=== PATIENT | male | born 1970 | race Caucasian/White ===

== ENCOUNTER → 2018-05-03 08:45 | Outpatient (CLI) | payer OTHER, SELFPAY ==
[2018-05-03 09:09] LABS: Add Manual Diff / Slide Review NO; Basophils Percent Auto 0.7 % (0-2); Eosinophils Percent Auto 3.4 % (2-4); Hematocrit 39.7 % (41-53); Hemoglobin 13.4 g/dL (13.5-17.5); Lymphocytes Percent Auto 20.9 % (25-40); Mean Corpuscular HGB Conc 33.8 % (30-36); Mean Corpuscular Hemoglobin 31.2 PG (26-34); Mean Corpuscular Volume 92.2 fL (80-100); Monocytes Percent Auto 7.1 % (3-14); Neutrophils Absolute Auto 6600 /uL (3000-5900); Neutrophils Percent Auto 67.9 % (50-75); Platelet Count 262 X10^3/uL (150-400); Red Blood Cell Count 4.31 X10^6/uL (4.5-5.9); Red Cell Distribution Width 12.9 % (11.6-14.8); White Blood Cell Count 9.6 X10^3/uL (4.5-11.0)
[2018-05-03 10:09] LABS: Alanine Aminotransferase 47 IU/L (21-72); Albumin 4.8 g/dL (3.5-5.0); Albumin Globulin Ratio 1.5 (1.0-2.8); Alkaline Phosphatase 66 U/L (38-126); Aspartate Aminotransferase 33 IU/L (17-59); Bilirubin Total 0.6 mg/dL (0.2-1.3); Blood Urea Nitrogen 29 mg/dL (9-20); Calcium 10.2 mg/dL (8.4-10.2); Carbon Dioxide 27 mmol/L (22-32); Chloride 101 mmol/L (98-107); Cholesterol 180 mg/dL (140-199); Estimated Glomerular Filt Rate > 60.0 mL/min (>60); Globulin 3.1 g/dL (1.7-4.1); Glucose 112 mg/dL (70-100); HDL Cholesterol 51 mg/dL (40-60); HEMOLYSIS < 15 (0-50); LDL Cholesterol Calculated 96 mg/dL (<100); Potassium 4.9 mmol/L (3.4-5.1); Sodium 139 mmol/L (137-145); Total Protein 7.9 g/dL (6.3-8.2); Triglycerides 166 mg/dL (35-150)
[2018-05-03 10:35] LABS: Prostate Specific Antigen Scrn 0.709 ng/mL (0.1-4.0)
[2018-05-03 11:01] LABS: Thyroid Stimulating Hormone 0.97 uIU/mL (0.47-4.68)
== END ==
PROVIDERS: PCP Family Medicine; Visit Provider Family Medicine
DX: I10 Essential (primary) hypertension (principal)
CPT/HCPCS: 36415; 80053; 80061; 84443; 85025; G0103

== ENCOUNTER → 2019-05-28 12:55 | Outpatient (CLI) | payer OTHER, SELFPAY ==
--- NOTE | 2019-05-28 12:59 | DI.RAD.S_ITS ---
PROCEDURE: XR KNEE LT 3V INDICATIONS: left medial knee pain TECHNIQUE: 3-views of the knee were acquired. COMPARISON: [facility], , KNEE 1-2 VIEWS RIGHT, 05/28/2017, 14:42. FINDINGS: Bones: No acute fractures or dislocations. Minimal degenerative changes of the left knee. Tiny marginal osteophyte formation of the patellofemoral compartment. No suspicious bony lesions. Soft tissues: No joint effusion. No suspicious soft tissue calcifications. IMPRESSION: Left knee without acute osseous abnormalities. Minimal degenerative change identified. Dictated by: Finesse Alvarez M.D. on 05/28/2019 at 15:28 Approved by: Finesse Alvarez M.D. on 05/28/2019 at 15:29
== END ==
PROVIDERS: Family Provider Family Medicine; PCP Family Medicine; Visit Provider Physician Assistant
DX: M25.562 Pain in left knee (principal)
CPT/HCPCS: 73562

== ENCOUNTER → 2019-10-29 09:01 | Outpatient (CLI) | payer OTHER, SELFPAY ==
--- NOTE | 2019-10-29 09:06 | DI.RAD.S_ITS ---
PROCEDURE: XR ELBOW LT MIN 3V INDICATIONS: left elbow swelling TECHNIQUE: 3 views of the elbow were acquired. COMPARISON: None. FINDINGS: Bones: No fractures or dislocations. No suspicious bony lesions. Soft tissue swelling seen at the tip of the olecranon. IMPRESSION: Soft tissue swelling seen at the tip of the olecranon potentially related to bursitis Dictated by: Foreign Cruz M.D. on 10/29/2019 at 13:24 Approved by: Foreign Cruz M.D. on 10/29/2019 at 13:25
[2019-10-29 10:16] LABS: Hematocrit 40.2 % (41-53); Hemoglobin 13.6 g/dL (13.5-17.5); Mean Corpuscular HGB Conc 33.8 % (30-36); Mean Corpuscular Hemoglobin 32.1 PG (26-34); Mean Corpuscular Volume 94.9 fL (80-100); Platelet Count 271 X10^3/uL (150-400); Red Blood Cell Count 4.23 X10^6/uL (4.5-5.9); Red Cell Distribution Width 13.4 % (11.6-14.8)
[2019-10-29 10:37] LABS: Alanine Aminotransferase 27 IU/L (<50); Albumin 4.9 g/dL (3.5-5.0); Albumin Globulin Ratio 1.5 (1.0-2.8); Alkaline Phosphatase 65 U/L (38-126); Aspartate Aminotransferase 28 IU/L (17-59); BUN Creatinine Ratio 37.8 (6-22); Blood Urea Nitrogen 34 mg/dL (9-20); Calcium 10.4 mg/dL (8.4-10.2); Carbon Dioxide 26 mmol/L (22-32); Chloride 99 mmol/L (98-107); Cholesterol 211 mg/dL (140-199); Estimated Glomerular Filt Rate > 60.0 mL/min (>60); Globulin 3.3 g/dL (1.7-4.1); Glucose 109 mg/dL (70-100); HDL Cholesterol 60 mg/dL (40-60); HEMOLYSIS < 15 (0-50); LDL Cholesterol Calculated 131 mg/dL (<100); Sodium 136 mmol/L (137-145); Total Protein 8.2 g/dL (6.3-8.2); Triglycerides 99 mg/dL (35-150); Uric Acid 6.4 mg/dL (3.5-8.5)
[2019-10-29 10:38] LABS: Potassium 5.6 mmol/L (3.4-5.1)
[2019-10-29 10:52] LABS: Microalbumi Creatinin Ratio Ur 7.6 ug/mg CR (<30); Microalbumin Urine Random < 0.6 mg/dL (0-1.6)
== END ==
PROVIDERS: Family Provider Family Medicine; PCP Family Medicine; Referring Provider Nurse Practitioner Family; Visit Provider Nurse Practitioner Family
DX: M25.422 Effusion, left elbow (principal); E78.2 Mixed hyperlipidemia; I10 Essential (primary) hypertension
CPT/HCPCS: 36415; 73080; 80053; 80061; 82043; 82570; 84550; 85027

== ENCOUNTER → 2020-09-06 07:15 | Outpatient (CLI) | payer OTHER, SELFPAY ==
[2020-09-06 09:37] LABS: Add Manual Diff / Slide Review NO; Basophils Absolute Auto 100 /uL (0-100); Basophils Percent Auto 0.9 % (0-2); Eosinophils Absolute Auto 300 /uL (0-450); Eosinophils Percent Auto 3.3 % (2-4); Hematocrit 39.7 % (41-53); Hemoglobin 13.2 g/dL (13.5-17.5); Lymphocytes Absolute Auto 2300 /uL (1100-4500); Lymphocytes Percent Auto 26.3 % (25-40); Mean Corpuscular HGB Conc 33.4 % (30-36); Mean Corpuscular Volume 95.8 fL (80-100); Monocytes Absolute Auto 700 /uL (0-900); Monocytes Percent Auto 7.5 % (3-14); Neutrophils Absolute Auto 5500 /uL (1500-7000); Platelet Count 272 X10^3/uL (150-400); Red Blood Cell Count 4.14 X10^6/uL (4.5-5.9); Red Cell Distribution Width 13.8 % (11.6-14.8); White Blood Cell Count 8.9 X10^3/uL (4.5-11.0)
[2020-09-06 09:38] LABS: Alanine Aminotransferase 38 IU/L (<50); Albumin 4.6 g/dL (3.5-5.0); Albumin Globulin Ratio 1.5 (1.0-2.8); Alkaline Phosphatase 66 U/L (38-126); Aspartate Aminotransferase 30 IU/L (17-59); Bilirubin Total 0.5 mg/dL (0.2-1.3); Blood Urea Nitrogen 24 mg/dL (9-20); Calcium 10.3 mg/dL (8.4-10.2); Carbon Dioxide 29 mmol/L (22-32); Chloride 104 mmol/L (98-107); Cholesterol 183 mg/dL (140-199); Estimated Glomerular Filt Rate > 60.0 mL/min (>60); Glucose 100 mg/dL (70-100); HDL Cholesterol 59 mg/dL (40-60); HEMOLYSIS < 15 (0-50); LDL Cholesterol Calculated 79 mg/dL (<100); Potassium 4.7 mmol/L (3.4-5.1); Sodium 140 mmol/L (137-145); Total Protein 7.6 g/dL (6.3-8.2); Triglycerides 224 mg/dL (35-150)
== END ==
PROVIDERS: Family Provider Family Medicine; PCP Family Medicine; Referring Provider Family Medicine; Visit Provider Family Medicine
DX: E78.2 Mixed hyperlipidemia (principal)
CPT/HCPCS: 36415; 80053; 80061; 85025

== ENCOUNTER → 2020-09-20 15:44 | Outpatient (CLI) | payer OTHER, SELFPAY ==
--- NOTE | 2020-09-20 15:48 | DI.ECHO.S_ITS ---
[facility]---------+ [facility] +---------+ : : [address] : [place] : : : : [id number] : : : : Phone: [phone]---------+ Echocardiogram Report + + :Name: ROSINA WREN Study Date: 09/20/2020 Height: 76 in : :[facility] Weight: 255 lb : : Gender: Male BSA: 2.5 m2 : :: 1970 Age: 50 yrs BP: 140/77 mmHg: :Reason For Study: SHORTNESS OF BREATH : :Ordering Physician: BRAYAN BLOUNTPerformed By: Sury Vanessa : :Referring: BRAYAN BLOUNT : + + Interpretation Summary 1) Normal left ventricular thickness, size, wall motion, and systolic function (EF 60-65%). 2) The right ventricle is mildly dilated. The right ventricular systolic function is normal. 3) No significant valvular abnormalities. 4) The right ventricular systolic pressure is estimated to be at least 36 mmHg based on an estimated right atrial pressure of 8 mm Hg. 5) The aortic root is mildly dilated at 4.2cm. 6) Compared to the Echo done 01/29/2017, mitral regurgitation has decreased from mild-moderate to trace on this study. Procedure: A two-dimensional transthoracic echocardiogram with color flow and Doppler was performed. The study quality was technically adequate. Comparison is made with the echocardiogram of 01/29/2017. The patient was in sinus rhythm with heart rates between 64-72 bpm during the exam. Left Ventricle: The left ventricle is normal in size and wall thickness. The ejection fraction is estimated to be 60-65%. Left ventricular systolic function appears normal without focal wall motion abnormalities. Right Ventricle: The right ventricle is mildly dilated. The right ventricular systolic function is normal. Atria: The left atrium is mildly dilated. Right atrial size is normal. There is no Doppler evidence for an interatrial shunt. Mitral Valve: The mitral valve leaflets appear mildly thickened, but open well. There is trace mitral regurgitation. Aortic Valve: The aortic valve is trileaflet. The aortic valve opens well. There is no aortic valve stenosis. No aortic regurgitation is present. Tricuspid Valve: The tricuspid valve is normal in structure and function. The right ventricular systolic pressure is estimated to be at least 36 mmHg based on an estimated right atrial pressure of 8 mm Hg. There is mild tricuspid regurgitation. Pulmonic Valve: The pulmonic valve leaflets are thin and pliable; valve motion is normal. There is mild pulmonic regurgitation. Great Vessels: The aortic root is mildly dilated. The ascending aorta is at the upper limits of normal in size. The IVC is dilated (diameter is greater than 2.1 cm) yet it collapses greater than 50% with a sniff. This suggests a right atrial pressure of 8 mm Hg. Pericardium/ Pleura There is no pericardial effusion. There is no pleural effusion. MMode/2D Measurements & Calculations LVIDd: 5.5 cm LVOT diam: 2.4 cm LVIDs: 4.1 cm Ao root diam: 4.2 cm FS: 26.0 % asc Aorta Diam: 3.6 cm EPSS: 0.73 cm Ao Arch Diam (Prox Trans): 3.3 cm IVSd: 0.85 cm LVPWd: 0.91 cm LV sims. diameter/BSA (cm/m^2): 2.3 LV sys. diameter/BSA (cm/m^2): 1.7 LA A2 area: 27.3 cm2 RA long axis: 5.5 cm LA A4 area: 26.1 cm2 RA area: 21.2 cm2 LA length (vol): 6.0 cm RA vol: 69.6 ml LA vol: 100.8 ml RA : 28.3 ml/m2 LA vol index: 41.0 ml/m2 IVC diam: 2.1 cm RVD1 (basal): 4.6 cm TAPSE: 2.5 cm Doppler Measurements & Calculations Ao V2 max: 165.8 cm/sec LVOT Max Lopez: 128.6 cm/sec Ao V2 mean: 113.8 cm/sec LV V1 max P.6 mmHg Ao max P.0 mmHg LV V1 VTI: 26.9 cm Ao mean P.9 mmHg CORINA(I,D): 3.7 cm2 Ao V2 VTI: 32.3 cm CORINA(V,D): 3.5 cm2 sev ratio: 0.83 CORINA indexed to BSA (cm^2/m^2): 1.5 MV E max lopez: 77.6 cm/sec TR max lopez: 265.2 cm/sec MV A max lopez: 87.5 cm/sec TR max P.1 mmHg MV E/A: 0.89 PA V2 max: 85.5 cm/sec Med Peak E' Lopez: 9.0 cm/sec PA V2 mean: 56.4 cm/sec E/E' med: 8.6 PA mean P.4 mmHg Lat Peak E' Lopez: 9.7 cm/sec PA pr(Accel): 35.3 mmHg E/E' lat: 8.0 E/e' average: 8.3 MV dec time: 0.25 sec SV(LVOT): 119.9 ml Reading Physician:05:36 PM
== END ==
PROVIDERS: Family Provider Family Medicine; PCP Family Medicine; Referring Provider Family Medicine; Visit Provider Family Medicine
DX: I07.1 Rheumatic tricuspid insufficiency (principal); R06.02 Shortness of breath; I37.1 Nonrheumatic pulmonary valve insufficiency; I77.810 Thoracic aortic ectasia
CPT/HCPCS: 93306

== ENCOUNTER → 2021-09-05 15:45 | Outpatient (CLI) | payer OTHER, SELFPAY ==
--- NOTE | 2021-09-05 15:47 | DI.RAD.S_ITS ---
PROCEDURE: XR CERVICAL SPINE 2V OR 3V INDICATIONS: progressive neck pain TECHNIQUE: 3 view(s) of the cervical spine were acquired. COMPARISON: None. FINDINGS: Bones: No fractures or dislocations to the C7-T1 level. Degenerative endplate changes and bilateral facet arthrosis throughout cervical spine is seen. The lateral masses of C1 appear intact on the odontoid view. No suspicious bony lesions. Soft tissues: No prevertebral soft tissue swelling. IMPRESSION: Degenerative disc disease throughout cervical spine. No acute compression fracture or spondylolisthesis. Dictated by: Jonathan Zee M.D. on 09/05/2021 at 16:07 Approved by: Jonathan Zee M.D. on 09/05/2021 at 16:10
== END ==
PROVIDERS: Family Provider Family Medicine; PCP Family Medicine; Referring Provider Family Medicine; Visit Provider Family Medicine
DX: M50.30 Other cervical disc degeneration, unspecified cervical region (principal); F52.21 Male erectile disorder; L30.9 Dermatitis, unspecified
CPT/HCPCS: 72040

== ENCOUNTER → 2021-11-25 07:36 | Outpatient (CLI) | payer OTHER, SELFPAY ==
[2021-11-25 08:18] LABS: Add Manual Diff / Slide Review NO; Basophils Absolute Auto 100 /uL (0-100); Basophils Percent Auto 0.9 % (0-2); Eosinophils Absolute Auto 300 /uL (0-450); Eosinophils Percent Auto 4.4 % (2-4); Hematocrit 37.8 % (41-53); Hemoglobin 12.6 g/dL (13.5-17.5); Lymphocytes Absolute Auto 1800 /uL (1100-4500); Lymphocytes Percent Auto 23.1 % (25-40); Mean Corpuscular HGB Conc 33.3 % (30-36); Mean Corpuscular Hemoglobin 31.6 PG (26-34); Mean Corpuscular Volume 95.1 fL (80-100); Monocytes Absolute Auto 600 /uL (0-900); Monocytes Percent Auto 7.7 % (3-14); Neutrophils Absolute Auto 4900 /uL (1500-7000); Neutrophils Percent Auto 63.9 % (50-75); Platelet Count 263 X10^3/uL (150-400); Red Blood Cell Count 3.98 X10^6/uL (4.5-5.9); Red Cell Distribution Width 13.4 % (11.6-14.8); White Blood Cell Count 7.6 X10^3/uL (4.5-11.0)
[2021-11-25 08:39] LABS: Alanine Aminotransferase 31 IU/L (<50); Albumin 4.7 g/dL (3.5-5.0); Albumin Globulin Ratio 1.7 (1.0-2.8); Alkaline Phosphatase 56 U/L (38-126); Aspartate Aminotransferase 29 IU/L (17-59); BUN Creatinine Ratio 30.5 (6-22); Bilirubin Total 0.6 mg/dL (0.2-1.3); Blood Urea Nitrogen 29 mg/dL (9-20); Calcium 9.7 mg/dL (8.4-10.2); Carbon Dioxide 26 mmol/L (22-32); Chloride 104 mmol/L (98-107); Cholesterol 198 mg/dL (140-199); Estimated Glomerular Filt Rate > 60.0 mL/min (>60); Globulin 2.8 g/dL (1.7-4.1); Glucose 99 mg/dL (70-100); HDL Cholesterol 52 mg/dL (40-60); HEMOLYSIS < 15 (0-50); LDL Cholesterol Calculated 109 mg/dL (<100); Potassium 4.6 mmol/L (3.4-5.1); Sodium 136 mmol/L (137-145); Total Protein 7.5 g/dL (6.3-8.2); Triglycerides 186 mg/dL (35-150)
== END ==
PROVIDERS: Family Provider Family Medicine; PCP Family Medicine; Referring Provider Family Medicine; Visit Provider Family Medicine
DX: R06.02 Shortness of breath (principal); I10 Essential (primary) hypertension; E78.2 Mixed hyperlipidemia
CPT/HCPCS: 36415; 80053; 80061; 85025

== ENCOUNTER → 2022-04-14 08:47 | Outpatient (CLI) | payer OTHER, SELFPAY ==
[2022-04-14 09:55] LABS: Add Manual Diff / Slide Review NO; Alanine Aminotransferase 26 IU/L (<50); Albumin 4.9 g/dL (3.5-5.0); Albumin Globulin Ratio 1.7 (1.0-2.8); Alkaline Phosphatase 60 U/L (38-126); Aspartate Aminotransferase 25 IU/L (17-59); Basophils Absolute Auto 100 /uL (0-100); Basophils Percent Auto 0.7 % (0-2); Bilirubin Total 0.6 mg/dL (0.2-1.3); Blood Urea Nitrogen 36 mg/dL (9-20); Calcium 9.8 mg/dL (8.4-10.2); Carbon Dioxide 19 mmol/L (22-32); Chloride 101 mmol/L (98-107); Cholesterol 179 mg/dL (140-199); Eosinophils Absolute Auto 100 /uL (0-450); Eosinophils Percent Auto 1.4 % (2-4); Estimated Glomerular Filt Rate > 60 mL/min (>60); Globulin 2.9 g/dL (1.7-4.1); Glucose 106 mg/dL (70-100); HDL Cholesterol 43 mg/dL (40-60); HEMOLYSIS < 15 (0-50); Hematocrit 35.5 % (41-53); Hemoglobin 12.2 g/dL (13.5-17.5); LDL Cholesterol Calculated 91 mg/dL (<100); Lymphocytes Absolute Auto 1900 /uL (1100-4500); Lymphocytes Percent Auto 21.2 % (25-40); Mean Corpuscular HGB Conc 34.5 % (30-36); Mean Corpuscular Hemoglobin 31.6 PG (26-34); Mean Corpuscular Volume 91.7 fL (80-100); Monocytes Absolute Auto 700 /uL (0-900); Monocytes Percent Auto 7.8 % (3-14); Neutrophils Absolute Auto 6100 /uL (1500-7000); Neutrophils Percent Auto 68.9 % (50-75); Platelet Count 307 X10^3/uL (150-400); Potassium 5.5 mmol/L (3.4-5.1); Red Blood Cell Count 3.87 X10^6/uL (4.5-5.9); Red Cell Distribution Width 12.9 % (11.6-14.8); Sodium 134 mmol/L (137-145); Total Protein 7.8 g/dL (6.3-8.2); Triglycerides 224 mg/dL (35-150); White Blood Cell Count 8.8 X10^3/uL (4.5-11.0)
[2022-04-14 10:31] LABS: Ferritin 273 ng/mL (18-464)
[2022-04-14 10:46] LABS: Vitamin B12 762 pg/mL (239-931)
== END ==
PROVIDERS: Family Provider Family Medicine; PCP Family Medicine; Referring Provider Pediatrics; Visit Provider Pediatrics
DX: I10 Essential (primary) hypertension (principal); R53.83 Other fatigue; E78.2 Mixed hyperlipidemia; K22.70 Barrett's esophagus without dysplasia
CPT/HCPCS: 80053; 80061; 82607; 82728; 85025

== ENCOUNTER → 2022-05-05 15:07 | Outpatient (CLI) | payer OTHER, SELFPAY ==
[2022-05-05 16:06] LABS: Add Manual Diff / Slide Review NO; Basophils Absolute Auto 0 /uL (0-100); Basophils Percent Auto 0.4 % (0-2); Eosinophils Absolute Auto 100 /uL (0-450); Eosinophils Percent Auto 1.2 % (2-4); Hematocrit 31.3 % (41-53); Hemoglobin 10.8 g/dL (13.5-17.5); Lymphocytes Absolute Auto 2000 /uL (1100-4500); Lymphocytes Percent Auto 18.5 % (25-40); Mean Corpuscular HGB Conc 34.5 % (30-36); Mean Corpuscular Hemoglobin 31.9 PG (26-34); Mean Corpuscular Volume 92.3 fL (80-100); Monocytes Absolute Auto 800 /uL (0-900); Monocytes Percent Auto 7.6 % (3-14); Neutrophils Absolute Auto 7700 /uL (1500-7000); Neutrophils Percent Auto 72.3 % (50-75); Platelet Count 319 X10^3/uL (150-400); Red Blood Cell Count 3.39 X10^6/uL (4.5-5.9); Red Cell Distribution Width 13.1 % (11.6-14.8); White Blood Cell Count 10.7 X10^3/uL (4.5-11.0)
[2022-05-05 16:45] LABS: BUN Creatinine Ratio 25.6 (6-22); Blood Urea Nitrogen 31 mg/dL (9-20); Calcium 9.3 mg/dL (8.4-10.2); Carbon Dioxide 20 mmol/L (22-32); Chloride 104 mmol/L (98-107); Estimated Glomerular Filt Rate > 60 mL/min (>60); Glucose 91 mg/dL (70-100); HEMOLYSIS < 15 (0-50); Potassium 4.7 mmol/L (3.4-5.1); Sodium 135 mmol/L (137-145)
== END ==
PROVIDERS: Family Provider Family Medicine; PCP Family Medicine; Referring Provider Family Medicine; Visit Provider Family Medicine
DX: E87.5 Hyperkalemia (principal); I10 Essential (primary) hypertension; D64.9 Anemia, unspecified; R53.83 Other fatigue
CPT/HCPCS: 36415; 80048; 85025

== ENCOUNTER → 2022-07-13 08:48 | Outpatient (CLI) | payer OTHER, SELFPAY ==
[2022-07-13 10:32] LABS: Add Manual Diff / Slide Review NO; Basophils Absolute Auto 0 /uL (0-100); Basophils Percent Auto 0.6 % (0-2); Eosinophils Absolute Auto 100 /uL (0-450); Hematocrit 39.1 % (41-53); Hemoglobin 13.3 g/dL (13.5-17.5); Lymphocytes Absolute Auto 1700 /uL (1100-4500); Lymphocytes Percent Auto 22.9 % (25-40); Mean Corpuscular HGB Conc 34.1 % (30-36); Mean Corpuscular Hemoglobin 31.8 PG (26-34); Mean Corpuscular Volume 93.3 fL (80-100); Monocytes Absolute Auto 600 /uL (0-900); Monocytes Percent Auto 7.6 % (3-14); Neutrophils Absolute Auto 5000 /uL (1500-7000); Neutrophils Percent Auto 66.9 % (50-75); Platelet Count 278 X10^3/uL (150-400); Red Blood Cell Count 4.19 X10^6/uL (4.5-5.9); Red Cell Distribution Width 12.8 % (11.6-14.8); White Blood Cell Count 7.5 X10^3/uL (4.5-11.0)
[2022-07-13 10:55] LABS: Reticulocyte Count, Percent 1.1 % (0.9-2.6)
[2022-07-13 11:19] LABS: HEMOLYSIS < 15 (0-50); Iron 54 ug/dL (49-181)
[2022-07-13 11:30] LABS: Percent Iron Saturation 15 % (20-50); Total Iron Binding Capacity 359 ug/dL (261-462); Transferrin 262 mg/dL (206-381)
[2022-07-13 12:07] LABS: Vitamin B12 647 pg/mL (239-931)
== END ==
PROVIDERS: Family Provider Family Medicine; PCP Family Medicine; Referring Provider Family Medicine; Visit Provider Family Medicine
DX: D64.9 Anemia, unspecified (principal); I10 Essential (primary) hypertension; K22.70 Barrett's esophagus without dysplasia; R53.83 Other fatigue
CPT/HCPCS: 36415; 82607; 83540; 83550; 85025; 85045

== ENCOUNTER → 2022-09-22 11:48 | Outpatient (CLI) | payer OTHER, SELFPAY ==
--- NOTE | 2022-09-22 11:51 | DI.RAD.S_ITS ---
PROCEDURE: XR CHEST 2V INDICATIONS: SHORT OF BREATH TECHNIQUE: 2 views of the chest were acquired. COMPARISON: [facility], , CHEST 2 VIEW, 01/09/2017, 15:08. [facility], , CHEST 1 VIEW, 12/02/2008, 9:32. FINDINGS: Surgical changes and devices: None. Lungs and pleura: Lungs are clear considering reduced inspiratory volume and body habitus.. No pleural effusions or pneumothorax. Mediastinum: Mediastinal contours are normal. Heart size is normal. Bones and chest wall: No suspicious bony abnormalities. Soft tissues appear unremarkable. IMPRESSION: Reduced inspiratory volume, no definite pneumonia or underlying mass lesion found. No sign of cardiomegaly or definite CHF. Dictated by: Tra Zhong M.D. on 09/22/2022 at 13:17 Approved by: Tra Zhong M.D. on 09/22/2022 at 13:17
== END ==
PROVIDERS: Family Provider Family Medicine; PCP Family Medicine; Referring Provider Family Medicine; Visit Provider Family Medicine
DX: R06.00 Dyspnea, unspecified (principal)
CPT/HCPCS: 71046

== ENCOUNTER → 2022-10-27 13:35 | Outpatient (CLI) | payer OTHER, SELFPAY ==
--- NOTE | 2022-10-27 13:38 | DI.ECHO.S_ITS ---
[facility]---------+ [facility] +---------+ : : [address] : : : : [place] : : : : [id number] : : : : Phone: [phone] : [phone]---------+ Echocardiogram Report + + :Name: ROSINA WREN Study Date: 10/27/2022 Height: 76 in : :[facility] ReadingLocation: Weight: 271 lb : : Gender: Male BSA: 2.5 m2 : :: 1970 Age: 52 yrs BP: 138/84 mmHg: :Reason For Study: Exertional fatigue : :Ordering Physician: : :KEN TEE Performed By: Sury Aguilar : :Referring: KEN TEE : + + Interpretation Summary The left ventricle is normal in size. Left ventricular systolic function appears normal without focal wall motion abnormalities. The ejection fraction is estimated to be 60-65%. LVEF has not changed. Diastolic parameters suggest probable normal left ventricular diastolic function and normal filling pressures. The right ventricle is mildly dilated. The right ventricular systolic function is normal. The right ventricular systolic pressure is estimated to be at least 35.6 mmHg based on an estimated right atrial pressure of 8 mm Hg. RVSP has not changed. The left atrium is moderately dilated. The right atrium is mildly dilated. The atrial septum is aneurysmal. There is no Doppler evidence for an atrial septal defect. There is mild mitral regurgitation. There is no other significant valvular heart disease. The aortic root is mildly dilated. Procedure: A two-dimensional transthoracic echocardiogram with color flow and Doppler was performed. There has been no significant change since the previous study. The patient was in sinus bradycardia with heart rates between 49-62 bpm during the exam. Left Ventricle: The left ventricle is normal in size. There is mild concentric left ventricular hypertrophy. Left ventricular systolic function appears normal without focal wall motion abnormalities. The ejection fraction is estimated to be 60-65%. Diastolic parameters suggest probable normal left ventricular diastolic function and normal filling pressures. Right Ventricle: The right ventricle is mildly dilated. The right ventricular systolic function is normal. Atria: The left atrium is moderately dilated. The right atrium is mildly dilated. The atrial septum is aneurysmal. There is no Doppler evidence for an atrial septal defect. Mitral Valve: The mitral valve is normal in structure and function. The mitral valve leaflets appear mildly thickened, but open well. There is mild mitral regurgitation. This is a slight increase compared to the previous study. Aortic Valve: The aortic valve is normal in structure and function. There is trace aortic regurgitation. Tricuspid Valve: The tricuspid valve is normal in structure and function. There is a trace or physiologic amount of tricuspid regurgitation. The right ventricular systolic pressure is estimated to be at least 35.6 mmHg based on an estimated right atrial pressure of 8 mm Hg. Pulmonic Valve: The pulmonic valve leaflets are thin and pliable; valve motion is normal. There is a trace or physiologic amount of pulmonic regurgitation. There is no other significant valvular heart disease. Great Vessels: The aortic root is mildly dilated. The ascending aorta is at the upper limits of normal in size. The IVC is of normal diameter and collapses less than 50% with a sniff. This suggests a right atrial pressure of 8 mm Hg. Pericardium/ Pleura There is no pericardial effusion. There is no pleural effusion. MMode/2D Measurements & Calculations LVIDd: 5.3 cm LVOT diam: 2.4 cm LVIDs: 3.6 cm Ao root diam: 4.1 cm FS: 33.0 % asc Aorta Diam: 3.5 cm EPSS: 0.61 cm IVSd: 1.2 cm LVPWd: 1.2 cm LV sims. diameter/BSA (cm/m^2): 2.1 LV sys. diameter/BSA (cm/m^2): 1.4 LA A2 area: 26.7 cm2 RA long axis: 5.4 cm LA A4 area: 30.1 cm2 RA area: 20.3 cm2 LA length (vol): 6.5 cm RA vol: 64.2 ml LA vol: 104.2 ml RA : 25.5 ml/m2 LA vol index: 41.3 ml/m2 IVC diam: 1.8 cm RVD1 (basal): 5.3 cm TAPSE: 2.5 cm Doppler Measurements & Calculations Ao V2 max: 152.1 cm/sec LVOT Max Lopez: 132.9 cm/sec Ao V2 mean: 107.6 cm/sec LV V1 max P.1 mmHg Ao max P.3 mmHg LV V1 VTI: 27.8 cm Ao mean P.2 mmHg CORINA(I,D): 4.1 cm2 Ao V2 VTI: 31.6 cm CORINA(V,D): 4.1 cm2 sev ratio: 0.88 CORINA indexed to BSA (cm^2/m^2): 1.6 AI P1/2t: 698.6 msec AI dec slope: 152.3 cm/sec2 MV E max lopez: 75.6 cm/sec TR max lopez: 262.6 cm/sec MV A max lopez: 68.3 cm/sec TR max P.6 mmHg MV E/A: 1.1 PA V2 max: 116.6 cm/sec Med Peak E' Lopez: 8.4 cm/sec PA V2 mean: 81.9 cm/sec E/E' med: 9.0 PA mean P.9 mmHg Lat Peak E' Lopez: 11.3 cm/sec E/E' lat: 6.7 E/e' average: 7.8 MV dec time: 0.31 sec MVA(VTI): 3.6 cm2 MV V2 mean: 49.7 cm/sec MR VTI: 217.1 cm MV mean P.2 mmHg MV V2 VTI: 35.3 cm SV(LVOT): 128.7 ml Reading Physician:08:34 AM
--- NOTE | 2022-10-27 20:14 | DI.NM.S_ITS ---
DATE OF SERVICE: 10/27/2022 PROCEDURE: Exercise stress test. INDICATION: Exertional fatigue. CARDIAC STRESS: The patient underwent exercise stress test under the supervision of an attending staff. The patient walked on Julio Cesar protocol for 7 minutes and 20 seconds, achieved 90 percent of target heart rate with maximum heart rate of 150 beats per minute. Resting blood pressure 120/80 mmHg. Peak blood pressure 170/90 mmHg. MARIA ELENA positive 23 percent. Achieved 10.1 METs of workload. Baseline rhythm was sinus. During stress, no convincing ischemic changes seen. No significant arrhythmias. No anginal symptoms or claudication. The patient felt fatigue and shortness of breath. CONCLUSION: Exercise stress test is negative for inducible ischemia. Normal hemodynamic response. Diminished exercise tolerance. Functional aerobic impairment positive 23 percent. No significant arrhythmias. Overall, low-risk study. Alicia Romeo - TORITO/leyla/lc doc#: [id number]/job#: [id number] dd: 10/27/2022 16:56:00 dt: 10/27/2022 19:51:00 DICTATING /COPIES TO: Lio Murphy MD COPIES MNE: ERIN;
== END ==
PROVIDERS: Family Provider Family Medicine; PCP Family Medicine; Referring Provider Family Medicine; Visit Provider Family Medicine
DX: I34.0 Nonrheumatic mitral (valve) insufficiency (principal); I77.810 Thoracic aortic ectasia; D64.9 Anemia, unspecified; I10 Essential (primary) hypertension; R53.83 Other fatigue
CPT/HCPCS: 93017; 93306

== ENCOUNTER → 2022-11-17 12:07 | Outpatient (CLI) | payer OTHER, SELFPAY ==
[2022-11-17 12:58] LABS: NT-proBNP (BNP-Adult 18+) 26 pg/mL (<125)
[2022-11-30 09:14] LABS: Percent Free Testosterone 3.64 % (1.50-4.20); Testosterone Total 197.9 ng/dL (264.0-916.0)
== END ==
PROVIDERS: Family Provider Family Medicine; PCP Family Medicine; Referring Provider Family Medicine; Visit Provider Family Medicine
DX: R53.83 Other fatigue (principal); R79.89 Other specified abnormal findings of blood chemistry; D64.9 Anemia, unspecified; I10 Essential (primary) hypertension
CPT/HCPCS: 36415; 83880; 84402; 84403

== ENCOUNTER → 2023-03-19 11:09 | Outpatient (CLI) | payer OTHER, SELFPAY ==
[2023-03-19 13:18] LABS: Cholesterol 204 mg/dL (140-199); HDL Cholesterol 51 mg/dL (40-60); LDL Cholesterol Calculated 114 mg/dL (<100); Triglycerides 193 mg/dL (35-150)
[2023-03-19 13:46] LABS: Prostate Specific Antigen 1.21 ng/mL (0.10-4.00)
[2023-03-25 17:25] LABS: Percent Free Testosterone 5.15 % (1.50-4.20); Testosterone Free 14.85 ng/dL (5.00-21.00); Testosterone Total 288.3 ng/dL (264.0-916.0)
== END ==
PROVIDERS: Family Provider Family Medicine; PCP Family Medicine; Referring Provider Family Medicine; Visit Provider Family Medicine
DX: E78.2 Mixed hyperlipidemia (principal); Z12.5 Encounter for screening for malignant neoplasm of prostate; R79.89 Other specified abnormal findings of blood chemistry
CPT/HCPCS: 36415; 80061; 84153; 84402; 84403

== ENCOUNTER → 2023-08-01 08:25 | Outpatient (CLI) | payer OTHER, SELFPAY ==
--- NOTE | 2023-08-01 08:26 | DI.RAD.S_ITS ---
PROCEDURE: XR KNEE LT 3V INDICATIONS: acute on chronic medial pain, hx degeneration TECHNIQUE: 3 views of the knee were acquired. COMPARISON: [facility], CR, XR KNEE LT 3V, 05/28/2019, 12:57. FINDINGS: Bones: No fractures or dislocations. No suspicious bony lesions. Interval progression of joint space loss, now moderately severe in the medial compartment. Soft tissues: No joint effusion. No suspicious soft tissue calcifications. IMPRESSION: Progressive joint space loss, moderately severe in the medial compartment. Dictated by: Barron Mejia M.D. on 08/01/2023 at 11:48 Approved by: Barron Mejia M.D. on 08/01/2023 at 11:49
[2023-08-01 10:24] LABS: Hemoglobin A1C% w Est Avg Glu 6.3 % (4.0-6.0)
[2023-08-01 11:05] LABS: TSH w/ Reflex to FT4 0.46 uIU/mL (0.47-4.68)
[2023-08-01 16:49] LABS: Free T4, Direct Thyroxine 1.11 ng/dL (0.78-2.19)
== END ==
PROVIDERS: Family Provider Family Medicine; PCP Family Medicine; Referring Provider Physician Assistant; Visit Provider Physician Assistant
DX: M25.562 Pain in left knee (principal); R63.5 Abnormal weight gain
CPT/HCPCS: 36415; 73562; 83036; 84439; 84443

== ENCOUNTER → 2023-09-25 09:27 | Outpatient (CLI) | payer OTHER, SELFPAY ==
[2023-09-25 09:51] LABS: Add Manual Diff / Slide Review NO; Basophils Absolute Auto 100 /uL (0-100); Basophils Percent Auto 0.6 % (0-2); Eosinophils Absolute Auto 100 /uL (0-450); Eosinophils Percent Auto 1.4 % (2-4); Hematocrit 38.1 % (41-53); Hemoglobin 13.2 g/dL (13.5-17.5); Lymphocytes Absolute Auto 2000 /uL (1100-4500); Lymphocytes Percent Auto 22.3 % (25-40); Mean Corpuscular HGB Conc 34.5 % (30-36); Mean Corpuscular Hemoglobin 32.4 PG (26-34); Mean Corpuscular Volume 93.9 fL (80-100); Monocytes Absolute Auto 600 /uL (0-900); Monocytes Percent Auto 6.6 % (3-14); Neutrophils Absolute Auto 6300 /uL (1500-7000); Neutrophils Percent Auto 69.1 % (50-75); Platelet Count 281 X10^3/uL (150-400); Red Blood Cell Count 4.05 X10^6/uL (4.5-5.9); Red Cell Distribution Width 13.4 % (11.6-14.8); White Blood Cell Count 9.1 X10^3/uL (4.5-11.0)
[2023-09-25 10:00] LABS: Reticulocyte Count, Percent 1.2 % (0.9-2.6)
[2023-09-25 10:07] LABS: Alanine Aminotransferase 36 IU/L (<50); Albumin 4.4 g/dL (3.5-5.0); Albumin Globulin Ratio 1.4 (1.0-2.8); Alkaline Phosphatase 59 U/L (38-126); Aspartate Aminotransferase 31 IU/L (17-59); BUN Creatinine Ratio 31.2 (6-22); Bilirubin Total 0.7 mg/dL (0.2-1.3); Blood Urea Nitrogen 29 mg/dL (9-20); Calcium 9.7 mg/dL (8.4-10.2); Carbon Dioxide 25 mmol/L (22-32); Chloride 99 mmol/L (98-107); Estimated Glomerular Filt Rate > 60 mL/min (>60); Globulin 3.1 g/dL (1.7-4.1); Glucose 101 mg/dL (70-100); HEMOLYSIS < 15 (0-50); Potassium 4.6 mmol/L (3.4-5.1); Sodium 133 mmol/L (137-145); Total Protein 7.5 g/dL (6.3-8.2)
[2023-09-25 10:12] LABS: HEMOLYSIS < 15 (0-50); Iron 103 ug/dL (49-181)
[2023-09-25 10:23] LABS: Percent Iron Saturation 32 % (20-50); Total Iron Binding Capacity 317 ug/dL (261-462); Transferrin 290 mg/dL (206-381)
[2023-09-25 10:39] LABS: Ferritin 83 ng/mL (18-464)
[2023-09-25 11:05] LABS: Vitamin B12 784 pg/mL (239-931)
== END ==
LOC: LAB 09:28
PROVIDERS: Family Provider Family Medicine; PCP Family Medicine; Referring Provider Internal Medicine Hematology & Oncology; Visit Provider Internal Medicine Hematology & Oncology
DX: D64.9 Anemia, unspecified (principal); E53.8 Deficiency of other specified B group vitamins
CPT/HCPCS: 36415; 80053; 82607; 82728; 83540; 83550; 85025; 85045

== ENCOUNTER → 2023-11-19 13:34 | Outpatient (CLI) | payer OTHER, SELFPAY ==
--- NOTE | 2023-11-19 13:35 | DI.MRI.S_ITS ---
PROCEDURE: MR KNEE LT WO CON INDICATIONS: continued L knee pain TECHNIQUE: Noncontrast sagittal PD fast spin echo and T2 fast spin echo with fat saturation, sagittal 3-D FLASH with fat saturation; coronal T1 spin echo and PD fast spin echo with fat saturation, and axial PD fast spin echo with fat saturation through the knee. COMPARISON: [facility], MR, KNEE WITHOUT CONTRAST, 12/08/2013, 19:22. [facility], CR, XR KNEE LT 3V, 08/01/2023, 8:30. [facility], CR, XR KNEE STANDING BILATERAL, 10/16/2023, 8:39. FINDINGS: Image quality: Excellent. Anterior cruciate ligament: Intact. Posterior cruciate ligament: Intact. Medial collateral ligament: Mild edema adjacent to the medial collateral ligament is likely reactive to the adjacent meniscal tear rather than recent ligament sprain. Lateral collateral ligament: Intact. Medial meniscus: There is complex degenerative tearing maceration of the medial meniscus with extrusion of the meniscal body beyond the femorotibial joint line. Lateral meniscus: Intact. Medial and lateral tendons: Mild tendinosis of the distal semimembranosus tendon at its insertion onto the posterior medial tibia. Visualized portions of the pes anserinus tendons appear normal. The popliteus tendon is intact. Iliotibial band appears normal. Anterior structures: The quadriceps and patellar tendons appear intact. No patellar subluxation. No femoral trochlear dysplasia or ventral trochlear prominence. No edema in the infrapatellar fat pad. Bones and cartilage: No bone marrow contusions or fractures. Medial femorotibial cartilage: Large area of grade 3 and grade 4 chondromalacia is seen in the weight-bearing portion of the medial femorotibial compartment with subchondral cystic changes and subchondral edema, progressed when compared to the MRI from 12/08/2013. There are small marginal osteophytes. Lateral femorotibial cartilage: Mild surface cartilage irregularity at the posterior weight-bearing portion of the lateral tibial plateau. Patellofemoral cartilage: Mild partial-thickness cartilage irregularity at the median ridge and medial facet of the patella as well as focally within the lateral facet and trochlear groove. Soft tissues: Moderate joint effusion is seen. There is a trace medial popliteal cyst. Fluid is seen tracking inferiorly along the popliteus tendon sheath as before. The musculature surrounding the knee is normal in bulk. IMPRESSION: 1. Complex degenerative tearing and maceration of the medial meniscus with meniscal extrusion. 2. Progressive cartilage loss in the medial femorotibial compartment, now with a large area of grade 3 and grade 4 chondromalacia in the weight-bearing portion with subchondral cystic changes and edema. Mild grade 2 chondromalacia is seen in the lateral and anterior compartments. 3. Mild insertional semimembranosus tendinosis. 4. Moderate joint effusion. Approved by: Bo Garcia M.D. on 11/20/2023 at 9:10
== END ==
PROVIDERS: Family Provider Family Medicine; PCP Family Medicine; Referring Provider Orthopaedic Surgery Foot and Ankle Surgery; Visit Provider Orthopaedic Surgery Foot and Ankle Surgery
DX: S83.232A Complex tear of medial meniscus, current injury, left knee, initial encounter (principal); M94.262 Chondromalacia, left knee; M25.462 Effusion, left knee; M17.12 Unilateral primary osteoarthritis, left knee
CPT/HCPCS: 73721

== ENCOUNTER → 2023-11-28 08:56 | Outpatient (CLI) | payer OTHER, SELFPAY | PROVIDERS: Family Provider Family Medicine; PCP Family Medicine; Referring Provider Orthopaedic Surgery Foot and Ankle Surgery; Visit Provider Orthopaedic Surgery Foot and Ankle Surgery | DX: Z01.818 Encounter for other preprocedural examination (principal) | CPT/HCPCS: 93005; 93010 ==

== ENCOUNTER → 2024-03-04 08:11 | Outpatient (CLI) | payer OTHER, SELFPAY ==
[2024-03-04 09:15] LABS: Hemoglobin A1C% w Est Avg Glu 5.8 % (4.0-6.0)
[2024-03-04 09:24] LABS: Alanine Aminotransferase 39 IU/L (<50); Albumin 5.1 g/dL (3.5-5.0); Albumin Globulin Ratio 1.7 (1.0-2.8); Alkaline Phosphatase 67 U/L (38-126); Aspartate Aminotransferase 28 IU/L (17-59); BUN Creatinine Ratio 32.4 (6-22); Bilirubin Total 0.8 mg/dL (0.2-1.3); Blood Urea Nitrogen 33 mg/dL (9-20); Calcium 10.4 mg/dL (8.4-10.2); Carbon Dioxide 25 mmol/L (22-32); Chloride 103 mmol/L (98-107); Estimated Glomerular Filt Rate > 60 mL/min (>60); Glucose 111 mg/dL (70-100); HEMOLYSIS < 15 (0-50); Sodium 134 mmol/L (137-145); Total Protein 8.1 g/dL (6.3-8.2)
[2024-03-04 09:29] LABS: Potassium 5.5 mmol/L (3.4-5.1)
== END ==
LOC: LAB 08:12
PROVIDERS: Family Provider Family Medicine; PCP Family Medicine; Referring Provider Family Medicine; Visit Provider Family Medicine
DX: I10 Essential (primary) hypertension (principal); E78.2 Mixed hyperlipidemia; R73.03 Prediabetes
CPT/HCPCS: 36415; 80053; 83036

== ENCOUNTER → 2024-03-06 15:41 | Outpatient (CLI) | payer OTHER, SELFPAY ==
--- NOTE | 2024-03-06 15:41 | DI.CT.S_ITS ---
PROCEDURE: CT IVP A/P W/WO INDICATIONS: family history renal cell carcinoma TECHNIQUE: Optional 5 mm thick noncontrast images acquired from the diaphragm to the symphysis pubis. After the administration of intravenous contrast, 5 mm thick images acquired from the diaphragm to the symphysis pubis after a 10-minute delay. 2 mm thick coronal and sagittal reformats were then performed of the kidneys and ureters. For radiation dose reduction, the following was used: automated exposure control, adjustment of mA and/or kV according to patient size. COMPARISON: None. FINDINGS: Image quality: Diagnostic. Kidneys and Ureters: Both kidneys are normal in size, without hydronephrosis. 4 mm nonobstructing calculus is seen at the superior pole of the left kidney. No perinephric fat stranding. There is normal bilateral renal enhancement. Renal calyces appear normal in morphology when filled with contrast. Opacified portions of both ureters demonstrate normal caliber. Multiple bilateral renal cysts are seen. A small hyperdense cyst at the superior pole of the left kidney does not enhance on postcontrast images. Borderline attenuation right upper pole exophytic cyst also does not demonstrate postcontrast enhancement. No suspicious solid enhancing renal mass identified. No complex cystic lesion. Bladder: Bladder wall thickness is normal. No calcified bladder stones. OTHER: Lower chest: Unremarkable. Lungs are clear. Bilateral gynecomastia. Liver: No solid mass. Liver is hypoattenuating consistent with diffuse fatty infiltration. Focal fatty sparing is seen at the gallbladder fossa. Gallbladder: Small radiopaque gallstone. No acute inflammatory changes. Biliary ducts: No biliary dilation. Pancreas: No ductal dilation. Spleen: Size is within normal limits. Adrenal Glands: No adrenal nodules. Stomach and Bowel: Multiple diverticula are seen in the colon without signs of acute diverticulitis. Small bowel loops and stomach are unremarkable. Peritoneum: No abnormal intraperitoneal fluid. No free air. Ventral Wall: Small fat containing periumbilical hernia. Abdominal Nodes: No retroperitoneal or mesenteric adenopathy by size criteria. Vessels: Aorta and inferior vena cava are normal in size. PELVIS: Pelvic Organs: Unremarkable. Pelvic Nodes: No enlarged lymph nodes. Miscellaneous: Small fat containing inguinal hernias. Bones: No aggressive osseous abnormality. Degenerative changes are seen in included spine. IMPRESSION: 1. Numerous bilateral renal cysts. No complex cyst or enhancing solid mass is seen in the kidneys. No suspicious urothelial lesion. 2. Nonobstructing 4 mm calculus at the superior pole of the left kidney. 3. Cholelithiasis. 4. Diffuse hepatic steatosis. 5. Colonic diverticulosis. Approved by: Bo Garcia M.D. on 03/06/2024 at 20:48
== END ==
PROVIDERS: Family Provider Family Medicine; PCP Family Medicine; Referring Provider Family Medicine; Visit Provider Family Medicine
DX: N28.1 Cyst of kidney, acquired (principal); N20.0 Calculus of kidney; K80.20 Calculus of gallbladder without cholecystitis without obstruction; K76.0 Fatty (change of) liver, not elsewhere classified; K57.90 Diverticulosis of intestine, part unspecified, without perforation or abscess without bleeding; K42.9 Umbilical hernia without obstruction or gangrene; K40.20 Bilateral inguinal hernia, without obstruction or gangrene, not specified as recurrent; N62 Hypertrophy of breast; Z80.51 Family history of malignant neoplasm of kidney; Z84.1 Family history of disorders of kidney and ureter
CPT/HCPCS: 74178; Q9967

== ENCOUNTER → 2024-11-07 08:47 | Outpatient (CLI) | payer OTHER, SELFPAY ==
[2024-11-07 09:34] LABS: Add Manual Diff / Slide Review NO; Basophils Absolute Auto 100 /uL (0-100); Basophils Percent Auto 0.8 % (0-2); Eosinophils Absolute Auto 300 /uL (0-450); Eosinophils Percent Auto 3.2 % (2-4); Hemoglobin 13.5 g/dL (13.5-17.5); Lymphocytes Absolute Auto 2000 /uL (1100-4500); Lymphocytes Percent Auto 21.8 % (25-40); Mean Corpuscular HGB Conc 34.5 % (30-36); Mean Corpuscular Hemoglobin 31.8 PG (26-34); Mean Corpuscular Volume 92.2 fL (80-100); Monocytes Absolute Auto 600 /uL (0-900); Monocytes Percent Auto 6.7 % (3-14); Neutrophils Absolute Auto 6100 /uL (1500-7000); Neutrophils Percent Auto 67.5 % (50-75); Platelet Count 295 X10^3/uL (150-400); Red Blood Cell Count 4.23 X10^6/uL (4.5-5.9); Red Cell Distribution Width 12.8 % (11.6-14.8)
[2024-11-07 09:59] LABS: Hemoglobin A1C% w Est Avg Glu 6.2 % (4.0-6.0)
[2024-11-07 10:01] LABS: Alanine Aminotransferase 38 IU/L (<50); Alkaline Phosphatase 62 U/L (38-126); Aspartate Aminotransferase 31 IU/L (17-59); BUN Creatinine Ratio 25.7 (6-22); Bilirubin Total 0.7 mg/dL (0.2-1.3); Blood Urea Nitrogen 28 mg/dL (9-20); Carbon Dioxide 21 mmol/L (22-32); Estimated Glomerular Filt Rate > 60 mL/min (>60); HEMOLYSIS < 15 (0-50)
[2024-11-07 10:15] LABS: Albumin Globulin Ratio 1.8 (1.0-2.8); Calcium 10.3 mg/dL (8.4-10.2); Chloride 101 mmol/L (98-107); Cholesterol 198 mg/dL (140-199); Globulin 2.8 g/dL (1.7-4.1); Glucose 110 mg/dL (70-100); HDL Cholesterol 51 mg/dL (40-60); LDL Cholesterol Calculated 112 mg/dL (<100); Sodium 133 mmol/L (137-145); Total Protein 7.8 g/dL (6.3-8.2); Triglycerides 174 mg/dL (35-150)
[2024-11-07 10:26] LABS: Potassium 5.5 mmol/L (3.4-5.1)
== END ==
LOC: LAB 08:50
PROVIDERS: Family Provider Family Medicine; Referring Provider Family Medicine; Visit Provider Family Medicine
DX: E78.2 Mixed hyperlipidemia (principal); I10 Essential (primary) hypertension; R73.03 Prediabetes; D64.9 Anemia, unspecified
CPT/HCPCS: 36415; 80053; 80061; 83036; 85025